=== PATIENT | female | born 1975 | race Caucasian/White ===

== ENCOUNTER 2019-10-08 12:26 | Emergency (ER) | payer OTHER ==
[~2019-10-08] VITALS: Ht 154.9 cm; Wt 73.5 kg
[2019-10-08 12:36] VITALS: Ht 154.9 cm; Wt 73.5 kg
[2019-10-08 15:28] VITALS: BP 118/53
== END 2019-10-08 15:57 | disposition home or self-care (01) ==
LOC: ED 12:26
DX: M54.41 Lumbago with sciatica, right side (principal); R20.2 Paresthesia of skin; Z90.89 Acquired absence of other organs; Z90.49 Acquired absence of other specified parts of digestive tract
CPT/HCPCS: J1885; J2270; Q0162